=== PATIENT | female | born 1990 | race Caucasian/White ===

== ENCOUNTER 2024-02-21 00:50 | Emergency (ER) | payer OTHER ==
[2024-02-21 01:15] VITALS: BP 120/73; PULSE 95; RESP 16; TEMP 98.1; BMI 32.0
[2024-02-21] MEDS ORDERED: ACETAMINOPHEN 325 MG TABLET (FP) ONE (01:26)
[2024-02-21] MEDS: ACETAMINOPHEN 325 MG TABLET (FP) PO ONE (01:27)
[2024-02-21 01:55] LABS: BASO % 0.6 % (0-2.0); EOS % 1.6 % (0-4.5); HEMATOCRIT 37.8 % (32.4-45.2); HEMOGLOBIN 12.5 GM/dL (10.7-15.3); LYMPH % 35.2 % (8-40); MCH 28.2 pg (25.7-33.7); MCHC 33.1 g/dl (32.0-36.0); MEAN PLT VOLUME 9.1 fl (7.5-11.1); MONO % 8.1 % (3.8-10.2); NEUT % 54.5 % (42.8-82.8); PLATELET COUNT 343 10^3/uL (134-434); RBC 4.45 M/mm3 (3.60-5.2); RDW 12.8 % (11.6-15.6); WHITE BLOOD COUNT 10.1 K/mm3 (4.0-10.0)
[2024-02-21 02:33] LABS: POTASSIUM 4.3 mmol/L (3.5-5.1)
[2024-02-21 02:34] LABS: ALBUMIN 3.7 g/dl (3.4-5.0); MAGNESIUM 1.9 mg/dL (1.8-2.4)
[2024-02-21 02:37] LABS: PHOSPHOROUS 2.8 mg/dL (2.5-4.9)
[2024-02-21 02:38] LABS: CREATININE 0.9 mg/dL (0.55-1.3)
[2024-02-21 02:40] LABS: BILIRUBIN,TOTAL 0.3 mg/dL (0.2-1); TOT PROT 7.5 g/dl (6.4-8.2)
[2024-02-21] MEDS: LACTATED RINGERS SOLUTION 1000 ML INFUS.BAG IV ONE (02:45)
== END 2024-02-21 04:55 | disposition home or self-care (01) ==
LOC: JER 00:50
DX: R05.9 Cough, unspecified (principal); R09.81 Nasal congestion; R07.89 Other chest pain; R11.10 Vomiting, unspecified; Z20.822 Contact with and (suspected) exposure to COVID-19
CPT/HCPCS: 0241U-QW; 36415; 71046-TC-FY; 80053; 83735; 84100; 84703; 85025; 99284-25